=== PATIENT | male | born 1990 | race Hispanic/Latino ===

== ENCOUNTER 2019-04-24 14:50 | Emergency (ER) | payer OTHER ==
[2019-04-24] MEDS ORDERED: LIDOCAINE 1%-EPI 1:100,000 20 ML VIAL IJ ONE (15:12)
[2019-04-24] MEDS ORDERED: IBUPROFEN 600 MG TABLET ONE (15:30)
[2019-04-24 16:58] LABS: GLUCOSE,BODY FLUID 121 mg/dL (1-40)
[2019-04-24 17:20] LABS: APPEARANCE BODY FLUID CLOUDY (CLEAR); BF LYMPHOCYTE 6 %; BF MONOCYTE 3 %; COLOR,BODY FLUID DARK YELLOW (LT YELLOW); SPECIMENTYPE,BODY FLUID SYNOVIAL; TOTAL VOLUME,BODY FLUID 50 mL
[2019-04-24 17:21] LABS: BODY FLUID WBC 5865 /cu. mm.
[2019-04-24 17:22] LABS: BODY FLUID RBC 2750 /cu. mm.
[2019-04-24 20:36] LABS: CRYSTALS, SYNOVIAL FLUID SEE SEPARATE REPORT
== END 2019-04-24 17:50 | disposition home or self-care (01) ==
LOC: EDH 14:50
DX: M25.462 Effusion, left knee (principal); Z87.891 Personal history of nicotine dependence; Z98.890 Other specified postprocedural states
CPT/HCPCS: 20610; 36415; 73562; 82945; 84157; 84550; 87071; 87205; 89051; 89060; 99285; J3490

== ENCOUNTER → 2021-09-27 | Outpatient (CLI) | payer OTHER | LOC: RAH 10:31 | PROVIDERS: ATTEND Internal Medicine Critical Care Medicine | DX: S50.11XA Contusion of right forearm, initial encounter (principal); S50.811A Abrasion of right forearm, initial encounter; S57.81XA Crushing injury of right forearm, initial encounter; X58.XXXA Exposure to other specified factors, initial encounter; Y93.89 Activity, other specified; Y92.89 Other specified places as the place of occurrence of the external cause; Y99.8 Other external cause status | CPT/HCPCS: 73090 ==